=== PATIENT | male | born 1975 | race African-American/Black ===

== ENCOUNTER 2017-04-17 08:55 | Emergency (ER) | payer SELFPAY ==
[2017-04-17 09:32] VITALS: BP 148/96
[2017-04-17] MEDS ORDERED: MECLIZINE HCL 25 MG TABLET PO ONE (09:43)
--- NOTE | 2017-04-17 11:17 | ER Document Report ---
ED Medical Screen (RME) - General Chief Complaint: Near Syncope Stated Complaint: DIZZINESS Time Seen by Provider: 04/17/17 11:16 Notes: 41-year-old male patient complaining of dizziness. Not worse with it, but worse with getting up and down. I have greeted and performed a rapid initial assessment of this patient. A comprehensive ED assessment and evaluation of the patient, analysis of test results and completion of the medical decision making process will be conducted by additional ED providers. TRAVEL OUTSIDE OF THE [place] IN LAST 30 DAYS: No - Related Data Allergies/Adverse Reactions: No Known Allergies Allergy (Verified 04/17/17 08:57) Past Medical History Renal/ Medical History: Reports: Hx Kidney Stones. Denies: Hx Peritoneal Dialysis Past Surgical History: Reports: Hx Orthopedic Surgery - Immunizations Hx Diphtheria, Pertussis, Tetanus Vaccination: No Physical Exam - Vital signs Vitals: Temp Pulse Resp BP Pulse Ox 98.2 F 79 20 148/96 H 100 04/17/17 08:59 04/17/17 08:59 04/17/17 08:59 04/17/17 08:59 04/17/17 08:59 Course - Vital Signs Vital signs: Temp Pulse Resp BP Pulse Ox 98.2 F 79 20 148/96 H 100 04/17/17 08:59 04/17/17 08:59 04/17/17 08:59 04/17/17 08:59 04/17/17 08:59
--- NOTE | 2017-04-17 13:33 | ER Document Report ---
ED Dizziness/Weakness - General Chief Complaint: Near Syncope Stated Complaint: DIZZINESS Time Seen by Provider: 04/17/17 11:16 TRAVEL OUTSIDE OF THE [place] IN LAST 30 DAYS: No - Related Data Allergies/Adverse Reactions: No Known Allergies Allergy (Verified 04/17/17 08:57) Past Medical History - Social History Family History: Reviewed & Not Pertinent Patient has suicidal ideation: No Patient has homicidal ideation: No Renal/ Medical History: Reports: Hx Kidney Stones. Denies: Hx Peritoneal Dialysis Past Surgical History: Reports: Hx Orthopedic Surgery - Immunizations Hx Diphtheria, Pertussis, Tetanus Vaccination: No Physical Exam - Vital signs Vitals: Temp Pulse Resp BP Pulse Ox 98.2 F 79 20 148/96 H 100 04/17/17 08:59 04/17/17 08:59 04/17/17 08:59 04/17/17 08:59 04/17/17 08:59 Course - Vital Signs Vital signs: Temp Pulse Resp BP Pulse Ox 98.2 F 79 20 148/96 H 100 04/17/17 08:59 04/17/17 08:59 04/17/17 08:59 04/17/17 08:59 04/17/17 08:59
--- NOTE | 2017-04-17 13:35 | ER Document Report ---
Doctor's Note Notes: 04/17/17 13:35 Patient eloped prior to my evaluation
== END 2017-04-17 13:40 | disposition other institution (70) ==
LOC: ER 08:55
DX: R42 Dizziness and giddiness (principal); Z53.20 Procedure and treatment not carried out because of patient's decision for unspecified reasons
CPT/HCPCS: 99281